=== PATIENT | male | born 1950 | race African-American/Black ===

== ENCOUNTER 2022-12-13 02:30 | Emergency (ER) | payer OTHER ==
[~2022-12-13] VITALS: Ht 182.9 cm; Wt 78.0 kg
[2022-12-13] MEDS ORDERED: PIPERACILLIN/TAZ 3.375G PREMIX 50 ML IV ONE (03:00)
[2022-12-13] MEDS ORDERED: SODIUM CHLORIDE 0.9% 1000ML BAG (SEPSIS BOLUS) IV ONE (03:00)
[2022-12-13] MEDS ORDERED: VANCOMYCIN 1G PREMIX 200 ML IV ONE (03:00)
[2022-12-13] MEDS ORDERED: EPINEPHRINE 10 MG in SODIUM CHLORIDE 0.9% 240 ML IV STA ×2 (03:34→03:42)
[2022-12-13] MEDS ORDERED: ATROPINE SULFATE 1MG/10ML SYR IV ONE (03:45)
[2022-12-13] MEDS ORDERED: FENTANYL 2500MCG/250ML PMX 250 ML IV ONE (03:45)
[2022-12-13] MEDS ORDERED: EPINEPHRINE 0.1MG/ML (1:10,000) 10ML SYR IV ONE (03:45)
[2022-12-13] MEDS ORDERED: NOREPINEPHRINE 8MG/250ML PMX 250 ML IV ONE (04:00)
[2022-12-13 04:20] VITALS: BP 57/36
[2022-12-13] MEDS ORDERED: NOREPINEPHRINE 8 MG in DEXTROSE 5% WATER 250 ML IV NR (04:30)
== END 2022-12-13 04:28 ==
LOC: ER 02:30 → CANBEDREQ 12-15 19:39
DX: I46.9 Cardiac arrest, cause unspecified (principal); J96.90 Respiratory failure, unspecified, unspecified whether with hypoxia or hypercapnia; I10 Essential (primary) hypertension; E11.9 Type 2 diabetes mellitus without complications
CPT/HCPCS: 31500; 71045; 82962; 92950; 93005; 96361; 96374; 96375; 99291; J3010; J3490; J7030; J7050; J7060; 94002